=== PATIENT | female | born 1985 | race Caucasian/White ===

== ENCOUNTER → 2017-08-01 | Day surgery (SDC) | payer MEDICAID ==
[~2017-08-01] MED LIST: Lactated Ringers 1,000 ML IV SCH; Propofol 200 MG/20 ML SDV IV ONE
--- NOTE | 2017-08-01 19:42 | OR ---
DATE OF OPERATION: 08/01/2017 PREOPERATIVE DIAGNOSIS: GASTROESOPHAGEAL REFLUX DISEASE. POSTOPERATIVE DIAGNOSIS: GASTROESOPHAGEAL REFLUX DISEASE. SURGEON: Manny Lane MD PROCEDURE: ESOPHAGOGASTRODUODENOSCOPY WITH ANGUS. ANESTHESIA: COUNSELING DIRECTOR due to reflux. COMPLICATIONS: None. SPECIMEN: Antral ANGUS. FINDINGS: 1. Full-length EGD. 2. Hiatal hernia with reflux, no esophagitis, ulceration, or Maldonado's changes. RECOMMENDATIONS: We will initiate appropriate therapy and discuss further options with the patient. INDICATIONS: The patient presented with worsening reflux over the last month. We elected to proceed with EGD. DESCRIPTION OF PROCEDURE: The patient was prepped and draped, placed in the left lateral decubitus position. A lubricated Olympus gastroscope was inserted over a bit and advanced to cricopharyngeus area and intubated in the esophagus. Esophageal lining was benign in its entire course. The Z-line was crisp and sharp. There was a mild hiatal hernia present with spontaneous reflux. No distal esophagitis, stricturing, ulceration, or Maldonado's changes. The scope was advanced into the stomach through the pylorus and into the second portion of the duodenum. Duodenal bulb, and this were benign. The scope was brought back into the stomach, retroflexed, the upper fundus and cardia were evaluated and hernia was visualized from below. With thorough evaluation of the entire gastric lining, there were no signs of peptic ulcer disease, polyp, mass, or otherwise. A ANGUS was taken, air was suctioned, and the scope was removed without complication. ROMANA/LETY /[id number]
== END ==
LOC: CC.SDS 11:01
PROVIDERS: ATTEND Family Medicine
DX: K21.9 Gastro-esophageal reflux disease without esophagitis (principal); K44.9 Diaphragmatic hernia without obstruction or gangrene; F41.8 Other specified anxiety disorders; E66.9 Obesity, unspecified; Z68.41 Body mass index [BMI] 40.0-44.9, adult; Z88.5 Allergy status to narcotic agent; Z88.8 Allergy status to other drugs, medicaments and biological substances; Z79.899 Other long term (current) drug therapy
CPT/HCPCS: 36415; 84703; 87081; J2704; J7120

== ENCOUNTER 2019-11-10 10:18 | Emergency (ER) | payer MEDICAID ==
--- NOTE | 2019-11-10 11:14 | EDM.PDOC ---
ED HPI GENERAL MEDICAL PROBLEM - General Chief Complaint: ENT Problem Stated Complaint: TOOTHACHE Time Seen by Provider: 11/10/19 10:55 Source of Information: Reports: Patient History Limitations: Reports: No Limitations - History of Present Illness INITIAL COMMENTS - FREE TEXT/NARRATIVE: Gloria is a 33 yo female who presents to the ED via private vehicle with concerns of an infected tooth. She states she is seeing Dr. Drew and is scheduled to have the tooth extracted tomorrow. Initially when she saw him she was put on Amoxicillin and there was concern of an allergic reaction to the medications. She went into an ER in [place], [place] and they stopped the Amoxicillin and started her on Clindamycin. She states she took her last dose this morning. States she has been having discomfort and noticed some swelling to her face as well. States she was concerned of another allergic reaction and called Dr. Drew's office. They recommended she be seen in the ED to rule out allergic re action. Currently rates her pain a 6 out of 10. Oral/Mouth Pain Score (Numeric/FACES): 6 - Related Data Allergies Allergy/AdvReac Type Severity Reaction Status Date / Time acetaminophen [From Vicodin] Allergy Nausea and Verified 11/10/19 10:47 Vomiting amoxicillin Allergy Swelling Verified 11/10/19 10:48 hydrocodone bitartrate Allergy Nausea and Verified 11/10/19 10:47 [From Vicodin] Vomiting Home Meds: Home Meds Pantoprazole Sodium [Protonix] 40 mg PO DAILY 03/18/13 [History] Acetaminophen [Tylenol Extra Strength] 500 mg PO Q4H PRN 07/30/17 [History] Past Medical History Other Musculoskeletal History: ACL surgery 2019 - Past Surgical History Female Surgical History: Reports: Section Social & Family History - Tobacco Use Smoking Status *Q: Current Every Day Smoker Years of Tobacco use: 10 Packs/Tins Daily: 1 - Recreational Drug Use Recreational Drug Use: No ED ROS ENT - Review of Systems Review Of Systems: See Below Constitutional: Denies: Fever, Chills HEENT: Reports: Other (tooth pain). Denies: Throat Pain, Throat Swelling Respiratory: Reports: No Symptoms Cardiovascular: Reports: No Symptoms Skin: Reports: No Symptoms Neurological: Reports: No Symptoms ED EXAM, ENT - Physical Exam Exam: See Below Exam Limited By: No Limitations General Appearance: Alert, No Apparent Distress Ears: Normal External Exam, Normal Canal, Hearing Grossly Normal, Normal TMs Nose: Normal Inspection, No Blood Mouth/Throat: Dental Pain, Dental Tenderness. No: Dental Abcess (no obvious abscess palpated; however, unable to fully palpate d/t discomfort. Mild swelling noted to left lower gum ), Dental Trauma, Drooling, Lip Swelling, Throat Swelling, Tongue Swelling Head: Atraumatic Neck: Normal Inspection, Supple. No: Lymphadenopathy (L), Lymphadenopathy (R) Respiratory/Chest: No Respiratory Distress, Lungs Clear, Normal Breath Sounds, No Accessory Muscle Use Cardiovascular: Regular Rate, Rhythm, No Murmur Neurological: Alert, Oriented, Normal Cognition Psychiatric: Normal Affect, Normal Mood Skin: Warm, Dry, Intact, Normal Color, No Rash Course - Vital Signs Last Recorded V/S: Last Vital Signs Temp 99.1 F 11/10/19 10:50 Pulse 117 H 11/10/19 10:50 Resp 20 11/10/19 10:50 BP 139/91 H 11/10/19 10:50 Pulse Ox 97 11/10/19 10:50 Departure - Departure Time of Disposition: 11:17 Disposition: Home, Self-Care 01 Clinical Impression: Fractured tooth Qualifiers: Encounter type: initial encounter - Discharge Information Instructions: Dental Extraction, Care After, [id number] Forms: ED Department Discharge Additional Instructions: 1) Discussed current symptoms with Dr. Drew. Will proceed with tooth extraction tomorrow. 2) No further antibiotics warranted today as last dose taken today. 3) Ketorolac shot given in ED to help with inflammation and pain. 4) May continue with Tylenol 1000mg every 6 hours as needed 5) Prescription for Toradol given, may take 1 tablet every 8 hours. Do not take until this evening since dose given in ED. 6) If swelling worsens, worsening of pain or any concerns at all prior to extraction tomorrow, please return to ED. Sepsis Event Note (ED) - Evaluation Sepsis Screening Result: No Definite Risk - Focused Exam Vital Signs: Vital Signs Temp Pulse Resp BP Pulse Ox 11/10/19 10:50 99.1 F 117 H 20 139/91 H 97 - Problem List & Annotations (1) Fractured tooth SNOMED Code(s): 12509454 Code(s): S02.5XXA - FRACTURE OF TOOTH (TRAUMATIC), INIT FOR CLOS FX Status: Acute Qualifiers: Encounter type: initial encounter - Assessment/Plan Plan: Consulted with Dr. Drew's office today. Will proceed with extraction tomorrow. Toradol will be given for pain. Further instructions given, see additional instructions. Patient verbalized understanding and is in agreement.
[2019-11-10] MEDS: Ketorolac 60 MG/2 ML SDV IM ONE (11:23)
== END 2019-11-10 11:35 | disposition home or self-care (01) ==
LOC: CC.ED 10:18
DX: K03.81 Cracked tooth (principal); F17.210 Nicotine dependence, cigarettes, uncomplicated; Z88.0 Allergy status to penicillin; Z88.6 Allergy status to analgesic agent; Z88.5 Allergy status to narcotic agent
CPT/HCPCS: 96372; 99282; J1885